=== PATIENT | male | born 1965 | race Caucasian/White ===

== ENCOUNTER 2021-11-17 10:10 | Emergency (ER) | payer OTHER ==
[2021-11-17] MEDS ORDERED: fentaNYL 100 MCG/2 ML SDV IVPUSH ONE ×2 (10:33→10:34)
[2021-11-17] MEDS ORDERED: Ondansetron 4 MG/2 ML SDV IVPUSH ONE (10:34)
[2021-11-17] MEDS ORDERED: Tamsulosin 0.4 MG Cap.ER PO ONE (12:02)
[2021-11-17] MEDS ORDERED: Acetaminophen/HYDROcodone 325-5 MG Tab PO ONE (12:03)
[2021-11-17] MEDS ORDERED: Ketorolac 15 MG/ML SDV IVPUSH ONE (12:20)
== END 2021-11-17 14:27 | disposition home or self-care (01) ==
LOC: JD.ED 10:10
DX: N20.2 Calculus of kidney with calculus of ureter (principal)
CPT/HCPCS: 36415; 74176; 80053; 81001; 83690; 85025; 96374; 96375; 96376; 99284; A9270; J1885; J2405; J3010

== ENCOUNTER 2024-11-23 11:05 | Observation (INO) | payer BC ==
[2024-11-23] MEDS ORDERED: Sodium Chloride 0.9% 10 ML Syringe FLUSH PRN ×2 (12:07→15:17)
[2024-11-23 12:34] LABS: BASOPHILS PERCENT AUTO 0.4 % (0.0-1.0); EOSINOPHILS ABSOLUTE AUTO 0.1 K/mm3 (0.0-0.4); EOSINOPHILS PERCENT AUTO 1.4 % (0.0-6.0); HEMATOCRIT 46.7 % (42.0-52.0); HEMOGLOBIN 15.7 gm/dl (14.0-18.0); IMMATURE GRAN ABSOLUTE AUTO 0.03 K/mm3 (0.00-0.05); IMMATURE GRAN PERCENT AUTO 0.4 % (0.0-0.4); LYMPHOCYTES ABSOLUTE AUTO 1.2 K/mm3 (1.0-4.8); LYMPHOCYTES PERCENT AUTO 16.4 % (24.0-44.0); MEAN CORPUSCULAR HEMOGLOBIN 30.8 pg (28.0-32.0); MEAN CORPUSCULAR HGB CONC 33.6 g/dl (32.0-36.0); MEAN CORPUSCULAR VOLUME 91.7 fl (83.0-99.0); MEAN PLATELET VOLUME 10.7 fl (9.4-12.4); MONOCYTES ABSOLUTE AUTO 0.9 K/mm3 (0.0-0.8); MONOCYTES PERCENT AUTO 11.7 % (0.0-8.0); NEUTROPHILS ABSOLUTE AUTO 5.1 K/mm3 (1.8-7.7); NEUTROPHILS PERCENT AUTO 69.7 % (41.0-71.0); PLATELET COUNT,PLT 154 K/mm3 (150-400); RED BLOOD CELL COUNT 5.09 M/mm3 (4.52-5.90); WHITE BLOOD CELL COUNT,WBC 7.27 K/mm3 (3.9-11.3)
[2024-11-23 12:36] LABS: APPEARANCE,URINE CLEAR (Clear); BILIRUBIN,URINE NEGATIVE (Negative); COLOR,URINE YELLOW (Yellow); GLUCOSE,URINE NEGATIVE (Negative); KETONES,URINE TRACE (Negative); LEUKOCYTE ESTERASE,URINE NEGATIVE (Negative); NITRITE,URINE NEGATIVE (Negative); OCCULT BLOOD,URINE TRACE-LYSED (Negative); PH,URINE 5.5 (5.0-8.0); PROTEIN,URINE NEGATIVE (Negative); UROBILINOGEN,URINE 0.2 (0.2-1.0)
[2024-11-23 12:43] LABS: A/G RATIO 0.9 (1-2); ALBUMIN 3.7 g/dl (3.4-5.0); ANION GAP 11.3 (5-15); BILIRUBIN TOTAL 0.8 mg/dL (0.2-1.0); BUN/CREATININE RATIO 10.7 (14-18); C-REACTIVE PROTEIN 5.17 mg/dL (<0.30); CALCIUM 8.9 mg/dL (8.5-10.1); CREATININE 1.4 mg/dL (0.7-1.3); EST CRCL DRUG DOSING (CG) 45.5 mL/min; POTASSIUM,K 4.3 mEq/L (3.5-5.1); PROTEIN TOTAL,TP 7.7 g/dl (6.4-8.2)
[2024-11-23 12:53] LABS: BACTERIA,URINE FEW /hpf (FEW); EPITHELIAL CELLS,URINE 0-5 /hpf (0-5); HYALINE CASTS,URINE 0-5 /lpf (0-5); MUCUS,URINE MANY /hpf (FEW); RBC,URINE 0-5 /hpf (0-5); WBC,URINE 0-5 /hpf (0-5)
[2024-11-23] MEDS: Iopamidol 612 MG/ML 100 ML Bottle IVPUSH ONE (13:41)
[2024-11-23] MEDS: Sodium Chloride 0.9% 10 ML Syringe FLUSH ONE (13:41)
[2024-11-23] MEDS ORDERED: fentaNYL 100 MCG/2 ML SDV ONE ×2 (14:50)
[2024-11-23] MEDS ORDERED: Midazolam 1 MG/ML 2 ML SDV ONE (14:50)
[2024-11-23] MEDS ORDERED: propofoL 500 MG/50 ML 50 ML ONE (14:50)
[2024-11-23] MEDS ORDERED: Ondansetron 4 MG/2 ML SDV IVPUSH PRN (15:17)
[2024-11-23] MEDS ORDERED: HYDROmorphone 0.5 MG/0.5 ML Syringe IVPUSH PRN (15:17)
[2024-11-23] MEDS ORDERED: fentaNYL 100 MCG/2 ML SDV IVPUSH PRN (15:17)
[2024-11-23] MEDS ORDERED: Lactated Ringers 1,000 ML IV SCH (15:30)
[2024-11-23] MEDS ORDERED: Dexamethasone 4 MG/ML 5 ML MDV ONE (16:00)
[2024-11-23] MEDS ORDERED: Lactated Ringers 1,000 ML IV ONE (16:00)
[2024-11-23] MEDS ORDERED: dexmedeTOMIDine HCl 200 MCG/2 ML SDV ONE (16:00)
[2024-11-23] MEDS ORDERED: Glycopyrrolate 0.2 MG/ML 2 ML SDV ONE (16:00)
[2024-11-23] MEDS ORDERED: Sodium Chloride 0.9% 100 ML ONE (16:00)
[2024-11-23] MEDS ORDERED: Lidocaine 1% 5 ML VIAL ONE (16:00)
[2024-11-23] MEDS ORDERED: Rocuronium 50 MG/5 ML Vial ONE (16:00)
[2024-11-23] MEDS ORDERED: ceFAZolin 2 GM Vial ONE (16:00)
[2024-11-23] MEDS ORDERED: Ketorolac 30 MG/ML SDV ONE (16:00)
[2024-11-23] MEDS ORDERED: Heparin Sodium 5,000 Units/ML Vial ONE (16:03)
[2024-11-23] MEDS ORDERED: Sugammadex Sodium 200 MG/2 ML VIAL IV ONE (16:57)
[2024-11-23] MEDS ORDERED: Morphine 2 MG/ML SYRINGE IVPUSH PRN (17:08)
[2024-11-23] MEDS ORDERED: Morphine 4 MG/ML Syringe IVPUSH PRN (17:09)
[2024-11-23] MEDS: cefOXitin 2 GM in Sodium Chloride 0.9% 50 ML IV ONE (18:03)
[2024-11-23] MEDS: Heparin Sodium 5,000 Units/ML Vial SUBCUT ONE (18:03)
[2024-11-23] MEDS: cefOXitin 2 GM in Sodium Chloride 0.9% 50 ML IV SCH (18:03)
[2024-11-23] MEDS: Lactated Ringers 1,000 ML IV SCH (18:15)
[2024-11-23] MEDS: Sodium Chloride 0.9% 1,000 ML IV STA (18:15)
[2024-11-23] MEDS: Ketorolac 30 MG/ML SDV IVPUSH SCH (21:46)
[2024-11-23] MEDS: Heparin Sodium 5,000 Units/ML Vial SUBCUT SCH (23:52)
== END 2024-11-24 09:57 | disposition home or self-care (01) ==
LOC: JD.ED 11:05 → JD.SDS 15:18 → JD.MS 17:36
PROVIDERS: ADMIT Surgery; ATTEND Surgery
DX: D12.1 Benign neoplasm of appendix (principal); K35.33 Acute appendicitis with perforation, localized peritonitis, and gangrene, with abscess; I10 Essential (primary) hypertension
CPT/HCPCS: 36415; 44970; 51702; 74177; 80053; 81001; 85025; 86140; 96360; 99285; J0690; J0694; J1100; J1596; J1644; J1885; J2003; J2250; J2704; J3010; J7120; Q9967; 00840; 64450; 96361; 96365; 96372; 96375; 96376; 99140; G0378; J3490